=== PATIENT | male | born 1990 | race Caucasian/White ===

== ENCOUNTER 2017-02-22 00:24 | Emergency (ER) | payer MEDICARE, MEDICAID ==
[~2017-02-22] VITALS: Ht 188 cm; Wt 70.4 kg
[2017-02-22] MEDS ORDERED: ZIPRASIDONE 20 MG INJ IM ONE ×2 (01:12→01:30)
[2017-02-22 04:11] VITALS: BP 128/65
== END 2017-02-22 05:18 | disposition home or self-care (01) ==
LOC: ED 03:54
DX: F15.129 Other stimulant abuse with intoxication, unspecified (principal); F17.200 Nicotine dependence, unspecified, uncomplicated; F14.10 Cocaine abuse, uncomplicated; Z88.6 Allergy status to analgesic agent
CPT/HCPCS: 96372; 99283; J3486